=== PATIENT | female | born 1980 | race African-American/Black ===

== ENCOUNTER 2018-12-23 22:53 | Emergency (ER) | payer MEDICAID ==
[2018-12-23 23:25] VITALS: Wt 111.4 kg
[2018-12-24 00:13] LABS: HEMATOCRIT 39.7 % (36.0-48.0); HEMOGLOBIN 12.6 g/dL (12-16); LYMPHOCYTES 24.9 % (15-50); MCH 25.7 pg (26.0-34.0); MCHC 31.7 g/dL (31.0-37.0); MEAN PLATELET VOLUME 10.1 fL (7.4-10.4); NEUTROPHILS 71.2 % (40-80); PLATELET COUNT 376 10x3/uL (130-400); RDW 14.1 % (11.5-14.5); WBC 8.2 10x3/uL (4.8-10.8)
[2018-12-24 00:34] LABS: APPEARANCE CLEAR (CLEAR); COLOR YELLOW (YELLOW); GLUCOSE NEGATIVE (NEGATIVE); HCG URINE NEGATIVE (NEGATIVE); NITRITE NEGATIVE (NEGATIVE); PROTEIN 2+ mg/dL (NEGATIVE); SPECIFIC GRAVITY 1.015 (1.005-1.020)
[2018-12-24 00:35] LABS: BACTERIA MODERATE /hpf (NONE SEEN); BILIRUBIN NEGATIVE (NEGATIVE); EPITHELIAL CELLS 0-5 /hpf (0-5); KETONE NEGATIVE (NEGATIVE); RED CELLS - URINE 0-5 /hpf (0-5); UROBILINOGEN NORMAL (NORMAL); WHITE CELLS - URINE 0-5 /hpf (0-5)
[2018-12-24 00:42] LABS: ALBUMIN 4.2 g/dL (3.4-5.0); ALKALINE PHOSPHATASE 104 U/L (46-116); ALT (SGPT) 37 U/L (10-68); AMYLASE - SERUM 54 U/L (25-115); BILIRUBIN - TOTAL 0.27 mg/dL (0.2-1.3); CALC OSMOLALITY 269 mosm/kg (275-300); CALCIUM 9.2 mg/dL (8.5-10.1); CARBON DIOXIDE 28.4 mmol/L (21.0-32.0); CHLORIDE - SERUM 101 mmol/L (98-107); CREATININE - SERUM 0.9 mg/dL (0.6-1.3); GLUCOSE 102 mg/dL (74-106); LIPASE 71 U/L (73-393); POTASSIUM - SERUM 3.9 mmol/L (3.5-5.1); PROTEIN - SERUM 8.4 g/dL (6.4-8.2); SODIUM 136 mmol/L (136-145); TROPONIN-I < 0.017 ng/mL (0.000-0.060); UREA NITROGEN 8 mg/dL (7-18); eGFR NON AFRICAN AMERICAN 75 mL/min (90-120)
[2018-12-24] MEDS ORDERED: DOXYCYCLINE HY100 M2 PO (01:22)
[2018-12-24 01:56] VITALS: BP 123/85
== END 2018-12-24 02:00 | disposition home or self-care (01) ==
LOC: D.ER 22:53
PROVIDERS: Emergency Medicine
DX: N73.9 Female pelvic inflammatory disease, unspecified (principal); R30.0 Dysuria

== ENCOUNTER 2020-05-02 19:12 | Emergency (ER) | payer MEDICAID ==
[~2020-05-02] VITALS: Ht 167.6 cm; Wt 111.8 kg
[~2020-05-02 19:12] MED LIST: DOXYCYCLINE HY100 M2 PO
[2020-05-02 19:51] VITALS: Ht 167.6 cm; Wt 111.8 kg
[2020-05-02] MEDS ORDERED: REGLAN (19:52)
[2020-05-02] MEDS ORDERED: OMEPRAZOLE (19:52)
[2020-05-02] MEDS ORDERED: AMLODIPINE (19:52)
[2020-05-02] MEDS ORDERED: GABAPENTIN (19:53)
[2020-05-02] MEDS ORDERED: XANAX2 MG PO (19:53)
[2020-05-02 20:29] LABS: BILIRUBIN NEGATIVE (NEGATIVE); GLUCOSE NEGATIVE (NEGATIVE); KETONE NEGATIVE (NEGATIVE); NITRITE NEGATIVE (NEGATIVE); UROBILINOGEN NORMAL (NORMAL)
[2020-05-02 20:33] LABS: HCG URINE NEGATIVE (NEGATIVE)
[2020-05-02 20:46] LABS: BASOPHILS 0.1 % (0-2); EOSINOPHILS 5.9 % (0-7); HEMATOCRIT 37.7 % (36.0-48.0); HEMOGLOBIN 11.8 g/dL (12-16); IMMATURE GRANULOCYTES 0.7 % (0-5); LYMPHOCYTES 33.2 % (15-50); MCH 27.2 pg (26.0-34.0); MCHC 31.3 g/dL (31.0-37.0); MCV 86.9 fL (80.0-100.0); MEAN PLATELET VOLUME 9.7 fL (7.4-10.4); MONOCYTES 4.7 % (2-11); NEUTROPHILS 55.4 % (40-80); RBC 4.34 10x6/uL (4.00-5.40); RDW 13.8 % (11.5-14.5)
[2020-05-02 20:48] LABS: PLATELET COUNT 281 10x3/uL (130-400)
[2020-05-02 20:53] LABS: CALC OSMOLALITY 275 mosm/kg (275-300); CALCIUM 8.8 mg/dL (8.5-10.1); CARBON DIOXIDE 27.1 mmol/L (21.0-32.0); CHLORIDE - SERUM 104 mmol/L (98-107); GLUCOSE 85 mg/dL (74-106); POTASSIUM - SERUM 3.5 mmol/L (3.5-5.1); SODIUM 138 mmol/L (136-145); UREA NITROGEN 14 mg/dL (7-18); eGFR NON AFRICAN AMERICAN 66 mL/min (90-120)
[2020-05-02 21:02] LABS: ALBUMIN 3.8 g/dL (3.4-5.0); ALKALINE PHOSPHATASE 86 U/L (30-120); ALT (SGPT) 19 U/L (10-68); AMYLASE - SERUM 41 U/L (25-115); BILIRUBIN - TOTAL 0.22 mg/dL (0.2-1.3); LIPASE 115 U/L (73-393); PROTEIN - SERUM 7.5 g/dL (6.4-8.2)
[2020-05-02 21:05] LABS: TROPONIN-I < 0.017 ng/mL (0.000-0.060)
[2020-05-02] MEDS ORDERED: ZOFRAN ODT4 MG/UDTAB PO (21:53)
[2020-05-02] MEDS ORDERED: TALWIN NX1 TAB PO (21:57)
[2020-05-02 22:38] VITALS: BP 142/87
== END 2020-05-02 22:40 | disposition home or self-care (01) ==
LOC: D.ER 19:12
PROVIDERS: Family Medicine
DX: R10.9 Unspecified abdominal pain (principal); A08.4 Viral intestinal infection, unspecified; R11.2 Nausea with vomiting, unspecified; I10 Essential (primary) hypertension